=== PATIENT | female | born 1985 | race Caucasian/White ===

== ENCOUNTER → 2017-05-10 | Outpatient (CLI) | payer BC ==
--- NOTE | 2017-05-10 16:59 | RADRPT ---
PROCEDURE: US OB. CLINICAL INDICATION: Uncertain size and dates. TECHNIQUE: Multiple sonographic images of the uterus were obtained. The images were revi ewed on a PACS workstation. COMPARISON: No prior studies are available for comparison. FINDINGS: There is a single live intrauterine gestation. heart rate is 154 beats per minute. Measurements were made in order to determine age. The results are as follows: BPD = 6.83 cm. HC = 25.37 cm. AC = 22.84 cm. FL = 5.40 cm. Estimated weight is 1120 +/- 168 grams. LMP growth percentile is 33 %. Amniotic fluid index is 12.4 cm. Cervical length is 4.4 cm. Menstrual age by ultrasound dates is 27 weeks 5 days. The estimated date of delivery is 08/04/2017. Position is cephalic and placenta is posterior grade 1. There is no evidence for an abruption or ricardo centa previa. IMPRESSION: 1. Single live intrauterine gestation of 27 weeks 5 days menstrual age by ultrasound dates. 2. The estimated date of delivery is 08/04/2017. RPTAT: QQ .Jose Gross MD, Date Time Electronically viewed and signed by .Jose Gross MD, on 05/10/2017 16:59 .R/
== END | disposition home or self-care (01) ==
LOC: U/S 10:10
PROVIDERS: ATTEND Obstetrics & Gynecology
DX: Z34.80 Encounter for supervision of other normal pregnancy, unspecified trimester (principal)
CPT/HCPCS: 76805

== ENCOUNTER 2017-07-11 07:58 | Outpatient (CLI) | END 2017-07-11 09:59 | disposition home or self-care (01) ==

== ENCOUNTER 2017-07-18 10:15 | Outpatient (CLI) | END 2017-07-18 12:29 | disposition home or self-care (01) ==

== ENCOUNTER 2017-07-24 09:43 | Inpatient (IN) | END 2017-07-27 12:40 | disposition home or self-care (01) | DRG 775 ==